=== PATIENT | male | born 1950 | race Caucasian/White ===

== ENCOUNTER 2020-07-24 06:48 | Day surgery (SDC) | payer MEDICARE ==
[2020-07-20 12:05] VITALS: BMI 33.5
[~2020-07-24 06:48] MED LIST: LACTATED RINGERS 1,000 ML IV SCH
[2020-07-24 07:12] VITALS: RESP 16; TEMP 97.6
[2020-07-24] MEDS ORDERED: LIDOCAINE 1% (10MG/ML) FOR IV START INTRADERMA ONE (07:19)
[2020-07-24] MEDS ORDERED: PROPOFOL 10 MG/ML 20 ML VIAL IV ONE (07:38)
--- NOTE | 2020-07-24 08:09 | P.PCN ---
Date of Procedure: 07/24/20 Description of Procedure: BRIEF HISTORY: Patient is a 69-year-old male presenting for outpatient colonoscopy for follow- up of positive Cologard. Patient reports a remote history of colonoscopy in the past. No change in bowel habits. PROCEDURE PERFORMED: Colonoscopy with polypectomy. PREOPERATIVE DIAGNOSIS: Positive Cologard, remote history of colonoscopy. ESTIMATED BLOOD LOSS: Minimal. IV sedation per Anesthesia. PROCEDURE: After informed consent was obtained, the patient, was brought into the endoscopy unit. IV sedation was administered by Anesthesia under continuous monitoring. Digital rectal examination was normal. Initially the Olympus CF-190 flexible video colonoscope was then inserted in the rectum, gradually advanced into the cecum without any difficulty. Careful examination was performed as the scope was gradually being withdrawn. Ileocecal valve and the appendiceal orifice were visualized and appeared normal. Prep was excellent. Mucosa of the cecum, ascending colon, transverse colon, descending colon, sigmoid colon, and rectum appeared normal. A few scattered diverticula noted in the sigmoid colon. Low- grade internal hemorrhoids were seen. A 12 mm ileocecal valve polyp was removed with hot snare polypectomy. Retroflexion was performed in the rectum and no lesions were seen. The patient tolerated the procedure well. IMPRESSION: Ileocecal valve polyp removed with hot snare. Mild sigmoid diverticulosis. Internal hemorrhoids. RECOMMENDATIONS: Findings of this examination were discussed with the patient family. Okay to resume diet. Okay to resume medications. Await pathology from polypectomy. Would recommend repeat colonoscopy in 5 years (patient reports a family history of colon cancer).
[2020-07-24 08:31] VITALS: BP 121/78; PULSE 80
== END 2020-07-24 08:45 | disposition home or self-care (01) ==
LOC: ORWHC2ENDO 06:48
PROVIDERS: ATTEND Internal Medicine
DX: K63.5 Polyp of colon (principal); K57.30 Diverticulosis of large intestine without perforation or abscess without bleeding; K64.8 Other hemorrhoids; I10 Essential (primary) hypertension; K21.9 Gastro-esophageal reflux disease without esophagitis; Z79.899 Other long term (current) drug therapy; Z98.890 Other specified postprocedural states; Z80.0 Family history of malignant neoplasm of digestive organs
CPT/HCPCS: 88305; 45385; J2704

== ENCOUNTER → 2021-01-16 | Outpatient (CLI) | payer MEDICARE ==
--- NOTE | 2021-01-16 13:14 | CT ---
EXAMINATION TYPE: CT foot LT wo con DATE OF EXAM: 01/16/2021 COMPARISON: None. HISTORY: Pain and swelling from fall x 1 week ago, sprain of tarsometatarsal ligament left foot per o rder. CT DLP: 254.4 mGycm Automated exposure control for dose reduction was used. CT of left foot without contrast. FINDINGS: Small to moderate size superior calcaneal spur with additional calcification along course of distal A chilles tendon. Distal Achilles tendon appears intact. Tiny spurring inferior calcaneus. Osseous structures are somewhat demineralized. The medial sesamoid bone appears to have small ossific fragments with 5 mm superior distraction, findings suspicious for acute comminuted fracture at this level. There is adjacent mild/moderate subcutaneous edema soft tissue swelling noted. The larger late ral sesamoid at the head of first metatarsal is intact. There is additional comminuted nondisplaced intra-articular fracture through the first distal phalanx with cortical breakthrough axial image 84. Mild to moderate surrounding subcutaneous edema and soft tissue swelling noted. A few tiny bony fragments along the plantar surface near distal aspect first p roximal phalanx favor tiny sesamoids given symmetry. There is flexion and varus positioning of the distal second through fifth toes. No additional acute f racture or dislocation is clearly seen at this level. Lisfranc joints shows moderate narrowing at the base of third metatarsal greatest along plantar media l aspect. [id number] narrowing of base of first metatarsal also seen along plantar aspect. Subt le linear lucency with tiny ossific fragments from the dorsal distal aspect of the lateral cuneiform are thought present axial image 51 and sagittal image 11. Hindfoot articulations are maintained. Mild to moderate narrowing talonavicular joint along plantar a spect. Normal sinus tarsi fat is seen. No significant ankle joint effusion. High arch noted. IMPRESSION: Acute nondisplaced fracture through the first distal phalanx with associated soft tissue swelling. Acute fracture thought present through the medial sesamoid at level of the first metatarsal head. Tiny avulsion type fracture incidentally seen from the dorsal distal aspect of the lateral cun eiform. Lisfranc joints maintained. Correlate clinically.
== END | disposition home or self-care (01) ==
LOC: RADCTMAIN 12:13
PROVIDERS: ATTEND Podiatrist
DX: S92.425A Nondisplaced fracture of distal phalanx of left great toe, initial encounter for closed fracture (principal); S92.812A Other fracture of left foot, initial encounter for closed fracture; S92.222A Displaced fracture of lateral cuneiform of left foot, initial encounter for closed fracture